=== PATIENT | female | born 1990 ===

== ENCOUNTER 2016-06-24 19:22 | Emergency (ER) | payer MEDICAID ==
[~2016-06-24] VITALS: Ht 167.6 cm; Wt 111.0 kg
[2016-06-24 20:14] VITALS: BP 134/88; PULSE 100; RESP 22; O2SAT 98
[2016-06-24 20:56] LABS: BASOPHILS % (AUTO) 0.5 % (0-3); EOSINOPHILS % (AUTO) 0 % (0-5); MONOCYTES % (AUTO) 10.8 % (4-12); Mean Corpuscular Hemoglobin 29.4 pg (27.0-35.0); Mean Corpuscular Volume 89.1 fL (81-100); NEUTROPHILS % (AUTO) 51.8 % (40-74); Platelet Count 191 bil/L (150-400)
--- NOTE | 2016-06-24 21:09 | ED.REPORT ---
HPI-Headache Date of Service Jun 24, 2016 ED Provider: Scot Mccartney MD A 26 year old female with a history of cervical cancer and headaches presents to the ED complaining of headache onset 1 week ago. The patient's entire head hurts and pain radiates into the patient's body. The patient reports that the headache causes dizziness. Baseline headaches normally last a day and she treats them with Tylenol. She has never visited the ED for headaches in the past. Associated symptoms include nausea and vomiting related to food and fluid intake, and a fever. The patient reports that they felt like they were burning up at home. The patient denies , reporting that she is on brith control. . Nursing Notes Stated Complaint: HEADACHE AND DIZZY Chief Complaint: General Complaint Nursing Notes Reviewed: Yes Allergies: Coded Allergies: Penicillins (Verified Allergy, Mild, N/V, 06/24/16) acetaminophen (Verified Allergy, Mild, N/V, 06/24/16) aspirin (Verified Allergy, Mild, N/V, 06/24/16) hydrocodone (Verified Allergy, Mild, N/V, 06/24/16) General Time Seen by MD: 21:06 Chief Complaint Headache Hx Obtained From: Patient Arrived By: Walk-in Sudden in Onset?: No Onset Occurred: 1 week ago Symptom Duration: Since onset Severity: Current: Moderate Severity: Maximum: Moderate Recent Healthcare: No recent doctor visit Similar Sx Previous: No Past Medical History Past Medical History cervical cancer. Reports history of headaches. Reports never visiting ED for headaches in the past. Patient is currently on control. Past Surgical History none reported. Social History Drug Use: THC Other Social History: Good social support Ambulatory Status Independent Review of Systems Constitutional: Reports: Fever GI: Reports: Nausea, Vomiting Neurologic: Reports: Dizziness, Headache Complete sys rev & neg: except as marked. Female: Denies: Physical Exam Physical Exam Notes: Initial Vital Signs Vital Signs (First) Date Time Temp Pulse Resp B/P Pulse Ox O2 Delivery O2 Flow Rate FiO2 06/24/16 20:14 38.5 100 22 134/88 98 06/24/16 23:02 Room Air Initial VS: Reviewed, Vital signs normal General/Constitutional: Awake, Alert Any patient movement or activity increases head pain. Head / Eyes: Normocephalic, PERRL, EOMI Patient has mild photophobia. Neck: Atraumatic, No swelling Neurologic: Oriented X3, Speech NL Standard neurologic exam is otherwise normal. ENT: Airway patent Respiratory / Chest: Breath sounds NL, Breath sounds = bilat, No respiratory distress, No rales, No rhonchi, No wheezing Cardiovascular: Heart rate NL, Regular rhythm, Heart sounds NL, No gallop, No murmurs, No rubs Abdomen: No guarding, No rebound Skin: Color NL, Warm, Dry Upper Extremity / MS: No swelling, No edema Wrist / Hand: No swelling, No edema Interpretation & Diagnostics Lab Results Interpretation Result Diagram: 06/24/16204906/24/162049 Test 06/24/16 20:50 06/24/16 22:10 White Blood Count 8.2th/mm3 (3.8-10.1) Red Blood Count 5.23mil/mm3 (3.90-5.20) Hemoglobin 15.4g/dL (12.0-15.6) Hematocrit 46.6% (35.0-46.0) Mean Corpuscular Volume 89.1fL (81-100) Mean Corpuscular Hemoglobin 29.4pg (27.0-35.0) Mean Corpuscular Hemoglobin Concent 33.0% (32.0-37.0) Red Cell Distribution Width 14.7% (12.3-15.4) Platelet Count 191bil/L (150-400) Neutrophils (%) (Auto) 51.8% (40-74) Lymphocytes (%) (Auto) 36.8% (14-46) Monocytes (%) (Auto) 10.8% (4-12) Eosinophils (%) (Auto) 0% (0-5) Basophils (%) (Auto) 0.5% (0-3) Erythrocyte Sedimentation Rate 14mm/hr (0-32) Sodium Level 137mEq/L (134-144) Potassium Level 4.2mEq/L (3.5-5.2) Chloride Level 101mEq/L (97-108) Carbon Dioxide Level 18mmol/L (18-29) Blood Urea Nitrogen 10mg/dL (6-20) Creatinine 0.85mg/dL (0.57-1.00) Estimat Glomerular Filtration Rate 115mL/min (>59) Glucose Level 92mg/dL (60-99) Calcium Level 9.3mg/dL (8.5-10.1) C-Reactive Protein 3.8mg/dL (0.0-0.5) Hold Saldivar Top Tube Received (Received) Hold Urine Received (Received) Lab values outside NL range: no clinical significance. Lab Results Interpretation: CRP is elevated. CT Head Interpretation CONCLUSION: Normal exam. No acute intracranial abnormality. Signed by Areli Cantu M.D. 06/24/2016, 1697 Interpretation / Wet Read by: Interpret - Radiologist Re-Eval/Medical Decision Med Decision/Clinical Course 26-year-old female who presents with severe migraine. She was treated with a migraine cocktail with good effect. She also has had a fever. Her neck is supple. I do not suspect meningitis with this presentation. Her elevated CRP is not explained. Upon discharge her headache is completely gone, she is sitting up eating and drinking and smiling. Source of Hx: Old records Re-Evaluation/Progress #1: Time of Eval: 23:22 Re-Evaluation/Progress Note: Rechecked patient who reports that they are thirsty. At recheck she denies nausea. Re-Evaluation/Progress #2: Time of Eval: 23:54 Re-Evaluation/Progress Note: Rechecked patient who is sitting up and eating. Patient wants to go home. Explained test results, diagnosis, and plan for discharge. Patient understands and agrees with the plan. All questions addressed. Counseled Regarding: Diagnosis, Need for follow-up, When/why to return to ED Discharge & Departure Impression: Primary Impression: Migraine headache Migraine type: without aura Status migrainosus presence: with status migrainosus Intractability: not intractable Qualified Code: G43.001 - Migraine without aura, not intractable, with status migrainosus Disposition: Home Discharge Condition All VS Reviewed: Yes Condition: Improved Patient Instructions: Migraine Headache (ED) Additional Instructions: You received IV fluids, Compazine, Benadryl, and ondansetron with marked improvement. Home to sleep. Follow-up with your regular doctor as needed for recurrent symptoms. Referrals: [facility] Scribe Attestation Portions of this note were transcribed by Sylvester Adames. I, Dr. Mccartney personally performed the history, physical exam and medical decision-making; I reviewed and confirmed the accuracy of the information in the transcribed note. Signed by: Tiffany Moreno, 06/25/2016, 0150. copies to: Scot Lu MD Jun 24, 2016 21:09 Sylvester Adames Jun 24, 2016 21:15
[2016-06-24] MEDS ORDERED: 0.9% Sodium Chloride 1,000 ML IV ONE ×3 (21:14→23:25)
[2016-06-24] MEDS ORDERED: ProchlorPERazine 5 mg/mL 2 mL Inj IVPUSH ONE (21:15)
[2016-06-24] MEDS ORDERED: Ondansetron 2 mg/mL 2 mL Inj IVPUSH ONE (21:15)
[2016-06-24 21:21] LABS: ERYTHROCYTE SEDIMENTATION RATE 14 mm/hr (0-32)
[2016-06-24] MEDS ORDERED: Ondansetron 2 mg/mL 2 mL Inj IVPUSH PRN (21:25)
[2016-06-24 23:02] VITALS: BP 132/86; PULSE 99; RESP 20; O2SAT 99
[2016-06-25 00:12] VITALS: BP 128/82; PULSE 90; RESP 18; O2SAT 98
--- NOTE | 2016-06-25 07:58 | DRSVH ---
PROCEDURE: CT BRAIN WITHOUT CONTRAST ([id number]) INDICATIONS: severe headache TECHNIQUE: Noncontrast 4.5 mm thick angled axial sections acquired from the foramen magnum to the vertex, with c oronal reformats. COMPARISON: None. FINDINGS: Image quality: Excellent. CSF spaces: Basal cisterns are patent. No extra-axial fluid collections. Ventricles are normal in size and shape. Brain: No midline shift. No intracranial masses or hemorrhage. Hussein-white matter interface is norm al. Skull and face: Calvarium and visualized facial bones are intact, without suspicious lesions. Sinuses: Visualized sinuses and mastoids are clear. IMPRESSION: No acute intracranial abnormalities. Dictated by: Brook Blood M.D. on 06/25/2016 at 7:56 Approved by: Brook Blood M.D. on 06/25/2016 at 7:57
== END 2016-06-25 00:13 | disposition home or self-care (01) ==
LOC: SED 19:22
DX: G43.001 Migraine without aura, not intractable, with status migrainosus (principal); Z85.41 Personal history of malignant neoplasm of cervix uteri; Z88.0 Allergy status to penicillin; Z88.6 Allergy status to analgesic agent; Z88.5 Allergy status to narcotic agent
CPT/HCPCS: 36415; 70450; 80048; 81025; 85025; 85651; 86140; 96361; 96374; 96375; 99285; J0780; J1200; J2405; J7030